=== PATIENT | female | born 1960 | race Caucasian/White ===

== ENCOUNTER 2020-09-26 11:21 | Emergency (ER) | payer OTHER ==
[~2020-09-26] VITALS: Ht 147.3 cm; Wt 54.9 kg
[~2020-09-26 11:21] MED LIST: levothyroxine PO; metformin PO
[2020-09-26 11:24] VITALS: BP 149/71
--- NOTE | 2020-09-26 11:29 | NUR ---
AMBULATED TO BED 7
--- NOTE | 2020-09-26 11:35 | NUR ---
Dr. Albrecht is evaluating patient at bedside.
--- NOTE | 2020-09-26 11:38 | NUR ---
59 y/o F coming in from home with c/c dizziness. Pt states yesterday, she began experiencing nausea, vomiting, dizziness and felt like she wanted to pass out at 8PM. Pt reports worsening dizziness this morning and felt that it was related to her blood sugar levels. Accuchek 297; pt states she did not take her Insulin Humalin this morning. Pt states associated headache, 8/10 to front and temporal region of head. Pt states vomiting x 3 episodes yesterday PM, today x 3 episodes since morning. 50cc emesis noted in emesis bag, clear/yellow. Pt states yesterday at 8pm, she felt lightheaded/dizziness and it worsen today. Pt denies taking any medications prior to arrival. Patient denies shortness of breath, chest pain, cough, fever/chills, cold-like symptoms. Pt placed onto library director. Lung sounds CTA. Bowel movements normoactive x 4 quadrants. Bed locked in lowest position, side rails x 1, call light in reach. PMH: DM 1, hypothyroidism Meds: Insulin Humalin, levothyroxine NKA Sx: tubal ligation
[2020-09-26] MEDS ORDERED: NACL 0.9% 1,000 ML IV ONE (11:45)
[2020-09-26] MEDS ORDERED: LORazepam 2 MG/ML VIAL IVP ONE (11:45)
[2020-09-26] MEDS ORDERED: SCOPOLAMINE 1.5 MG/72 HR PATCH TD SCH (11:45)
[2020-09-26] MEDS ORDERED: ONDANSETRON 4 MG/2 ML VIAL IVP ONE (11:45)
--- NOTE | 2020-09-26 11:45 | NUR ---
Lab at bedside.
[2020-09-26 12:04] LABS: BASOPHILS # (AUTO) 0.1 K/uL (0.00-0.22); BASOPHILS % (AUTO) 0.8 % (0.0-2.0); EOSINOPHILS # (AUTO) 0.2 K/uL (0-0.4); HEMATOCRIT 41.3 % (36-48); HEMOGLOBIN 13.6 g/dL (12.0-16.0); LYMPHOCYTES # (AUTO) 1.8 K/uL (2.5-16.5); LYMPHOCYTES % (AUTO) 24.6 % (20.5-51.1); MEAN CORPUSCULAR HEMOGLOBIN 30 pg (27-31); MEAN CORPUSCULAR HGB CONC 33 g/dL (33-37); MEAN CORPUSCULAR VOLUME 89.7 fL (80-94); MONOCYTES # (AUTO) 0.4 K/uL (0.8-1.0); NEUTROPHILS # (AUTO) 5.1 K/uL (1.8-7.7); NEUTROPHILS % (AUTO) 67.6 % (42.2-75.2); PLATELET COUNT (AUTO) 230 K/uL (140-450); RED CELL DISTRIBUTION WIDTH 13.5 % (11.6-13.7); WHITE BLOOD COUNT (AUTO) 7.5 K/uL (4.8-10.8)
--- NOTE | 2020-09-26 12:06 | NUR ---
Ariella dias in [facility] - 09/26/20 at 1244 by [place] X-ray tech assisted patient via wheelchair
--- NOTE | 2020-09-26 12:06 | NUR ---
dye lab technician disconnected pt from environmental monitoring specialist, transported patient via wheelchair to CT.
[2020-09-26 12:12] LABS: ALBUMIN 4.1 g/dL (3.4-5.0); ANION GAP 12.9 (8-16); CARBON DIOXIDE 25.7 mmol/L (21-32); CREATININE 0.7 mg/dL (0.6-1.3); POTASSIUM 3.6 mmol/L (3.5-5.1); TOTAL BILIRUBIN 0.5 mg/dL (0.0-1.0)
--- NOTE | 2020-09-26 12:57 | NUR ---
Dr. Albrecht at bedside for re-evaluation.
--- NOTE | 2020-09-26 13:10 | NUR ---
Patient states she did not take her insulin this morning; requesting insulin at this time. Dr. Albrecht made aware, orders placed.
[2020-09-26] MEDS ORDERED: INSULIN REGULAR, HUMAN 100 UNIT/ML VIAL SUBQ ONE (13:15)
--- NOTE | 2020-09-26 13:45 | NUR ---
Patient resting in position of comfort. quality assurance monitor body remains in place. Respirations even/unlabored. Bed locked in lowest position, side rails x 1, call light in reach.
[2020-09-26] MEDS ORDERED: ONDA4TAB PO (13:55)
[2020-09-26] MEDS ORDERED: SCOP0.332 TP (13:55)
[2020-09-26 14:07] VITALS: BP 131/69
--- NOTE | 2020-09-26 14:07 | NUR ---
Patient discharged with v/s stable. Written and verbal after care instructions given and explained. Patient alert, oriented and verbalized understanding of instructions. Ambulatory with steady gait. All questions addressed prior to discharge. ID band removed. Patient advised to follow up with PMD. Rx of Zofran, Scopolamine given. Patient educated on indication of medication including possible reaction and side effects. Opportunity to ask questions provided and answered.
== END 2020-09-26 14:07 | disposition home or self-care (01) ==
LOC: MED 11:21
DX: R42 Dizziness and giddiness (principal); R11.2 Nausea with vomiting, unspecified; R51.9 Headache, unspecified; E11.65 Type 2 diabetes mellitus with hyperglycemia; R74.8 Abnormal levels of other serum enzymes; K21.9 Gastro-esophageal reflux disease without esophagitis; E07.9 Disorder of thyroid, unspecified; Z79.899 Other long term (current) drug therapy
CPT/HCPCS: 36415; 70450; 80053; 84484; 85025; 93005; 96361; 96372; 96374; 96375; 99285; J1815; J2060; J2405; J7030

== ENCOUNTER 2024-03-23 19:57 | Emergency (ER) | payer OTHER ==
[~2024-03-23] VITALS: Ht 147.3 cm; Wt 53.2 kg
[~2024-03-23 19:57] MED LIST changes: +ONDA4TAB PO; +SCOP0.332 TP
[2024-03-23 20:14] VITALS: BP 137/78; PULSE 104; RESP 22; TEMP 99.1; O2SAT 6
[2024-03-23 20:30] VITALS: O2SAT 6
[2024-03-23 20:49] LABS: BASOPHILS % (AUTO) 0.2 % (0.0-2.0); HEMATOCRIT 40.4 % (36-48); HEMOGLOBIN 13.1 g/dL (12.0-16.0); LYMPHOCYTES # (AUTO) 0.7 K/uL (2.5-16.5); MEAN CORPUSCULAR HEMOGLOBIN 30 pg (27-31); MEAN CORPUSCULAR HGB CONC 32 g/dL (33-37); MEAN CORPUSCULAR VOLUME 91.8 fL (80-94); MONOCYTES # (AUTO) 0.3 K/uL (0.8-1.0); MONOCYTES % (AUTO) 2.1 % (1.7-9.3); NEUTROPHILS # (AUTO) 12.1 K/uL (1.8-7.7); NEUTROPHILS % (AUTO) 92.1 % (42.2-75.2); PLATELET COUNT (AUTO) 230 K/uL (140-450); RED CELL DISTRIBUTION WIDTH 13.7 % (11.6-13.7); WHITE BLOOD COUNT (AUTO) 13.1 K/uL (4.8-10.8)
[2024-03-23 20:52] LABS: LYMPHOCYTES % (AUTO) 5.6 % (20.5-51.1)
[2024-03-23 20:52] LABS: APPEARANCE,URINE CLEAR (CLEAR); BILIRUBIN,URINE NEGATIVE (NEGATIVE); BLOOD, URINE NEGATIVE (NEGATIVE); COLOR,URINE YELLOW (YELLOW); LEUKOCYTE ESTERASE ,URINE NEGATIVE (NEGATIVE); NITRITE, URINE NEGATIVE (NEGATIVE); PROTEIN,URINE TRACE (NEGATIVE); UGLUCOSE 3+ (NEGATIVE); UROBILINOGEN,URINE 0.2 EU/dL (0.2 - 1)
[2024-03-23 20:55] LABS: CALCIUM 8.8 mg/dL (8.5-10.1); CARBON DIOXIDE 23.6 mmol/L (21-32); CREATININE 1.2 mg/dL (0.6-1.3); POTASSIUM 3.6 mmol/L (3.5-5.1)
[2024-03-23 21:02] LABS: ALBUMIN 4.1 g/dL (3.4-5.0); BILIRUBIN,DIRECT 0.1 mg/dL (0.0-0.3); TOTAL BILIRUBIN 0.6 mg/dL (0.0-1.0)
[2024-03-23 21:05] LABS: BACTERIA,URINE FEW /HPF (None Seen); MUCUS,URINE 1+ /LPF (None Seen); RBC,URINE 0-5 /HPF (0-5); SQUAMOUS EPITHELIAL CELL,UR 4-10 (MOD) /LPF (0-3 (FEW)); WBC,URINE 0-5 /HPF (0-5)
[2024-03-23] MEDS ORDERED: ONDA-188 PO (21:54)
[2024-03-23] MEDS ORDERED: ALUMINUM HYD/MAG/SIMETHICONE 30 ML UDC ONE (22:04)
[2024-03-23] MEDS ORDERED: DICYCLOMINE HCL LIQUID 10 MG/5 ML UDC ONE (22:04)
[2024-03-23] MEDS: DICYCLOMINE HCL LIQUID 20 MG, ALUMINUM HYD/MAG/SIMETHICONE 30 ML, LIDOCAINE VISCOUS 2% ... PO ONE (22:07)
== END 2024-03-23 22:21 | disposition home or self-care (01) ==
LOC: MED 19:57
DX: R11.2 Nausea with vomiting, unspecified (principal); R10.84 Generalized abdominal pain; E11.9 Type 2 diabetes mellitus without complications; K21.9 Gastro-esophageal reflux disease without esophagitis; Z86.39 Personal history of other endocrine, nutritional and metabolic disease; Z98.51 Tubal ligation status; Z79.899 Other long term (current) drug therapy
CPT/HCPCS: 36415; 80048; 80076; 81001; 83690; 85025; 99284